=== PATIENT | female | born 1960 | race Caucasian/White ===

== ENCOUNTER 2016-11-06 14:20 | Observation (INO) | payer SELFPAY ==
[~2016-11-06 14:20] MED LIST: DIAZ5 PO; HYDR-3583 PO; Z.0.NO CURRENT MEDS
[2016-11-06] MEDS ORDERED: HALOPERIDOL LACTATE 5 MG/ML AMP IM PRN (15:45)
[2016-11-06] MEDS ORDERED: ONDANSETRON HCL 4 MG/2 ML VIAL IVP PRN (15:45)
[2016-11-06] MEDS ORDERED: BISACODYL 10 MG SUPP RECTAL PRN (15:45)
[2016-11-06] MEDS ORDERED: FLUMAZENIL 0.5 MG/5 ML VIAL IV PUSH PRN ×2 (15:45)
[2016-11-06] MEDS ORDERED: LORazepam 2 MG/ML VIAL IV PUSH PRN ×4 (15:45)
[2016-11-06] MEDS ORDERED: NALOXONE HCL 0.4 MG/ML AMP IV PRN (15:45)
[2016-11-06] MEDS ORDERED: LORazepam 1 MG TAB PO PRN (15:45)
[2016-11-06] MEDS ORDERED: SODIUM CHLORIDE 0.9% FLUSH 10 ML FLUSH IV FLUSH PRN (15:45)
[2016-11-06] MEDS ORDERED: LORazepam 2 MG TAB PO PRN (15:45)
[2016-11-06] MEDS ORDERED: ACETAMINOPHEN 325 MG TAB PO PRN ×2 (15:45)
[2016-11-06] MEDS: DOCUSATE SODIUM 100 MG CAP PO SCH (16:00)
[2016-11-06 16:30] VITALS: BP 99/63; PULSE 89; RESP 18; TEMP 97.6; O2SAT 96
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
[2016-11-06 19:05] VITALS: BP 110/65; PULSE 83; RESP 21; TEMP 98.5; O2SAT 98
[2016-11-06 20:30] VITALS: PULSE 81
[2016-11-06] MEDS: SODIUM CHLORIDE 0.9% FLUSH 10 ML FLUSH IV FLUSH SCH (21:00)
[2016-11-06] MEDS: SODIUM CHLOR 0.9% 1000 ML INJ 1,000 ML IV SCH (21:20)
[2016-11-06 22:28] LABS: ACETAMINOPHEN 3.9 MCG/ML (10.0-30.0); BICARBONATE 25.9 MEQ/L (21.0-32.0); MAGNESIUM 1.8 MG/DL (1.5-2.5); POTASSIUM 3.8 MEQ/L (3.5-5.1)
[2016-11-07 00:18] VITALS: BP 118/69; PULSE 85; RESP 18; TEMP 97.9; O2SAT 97
[2016-11-07 03:53] VITALS: BP 97/55; PULSE 78; RESP 20; TEMP 97.9; O2SAT 95
[2016-11-07] MEDS: DOCUSATE SODIUM 100 MG CAP PO SCH ×2 (04:00→16:00)
[2016-11-07] MEDS: SODIUM CHLOR 0.9% 1000 ML INJ 1,000 ML IV SCH (06:17)
[2016-11-07 06:47] LABS: AUTOMATED NEUTROPHIL # 2.7 TH/MM3 (1.8-7.7); BASOPHIL % 0.8 % (0.0-2.0); EOSINOPHIL # 0.1 TH/MM3 (0-0.4); EOSINOPHIL % 2.7 % (0.0-4.0); HEMATOCRIT 34.4 % (35.0-46.0); HEMO FLAGS DIFF FINAL; LYMPH % 29.5 % (9.0-44.0); LYMPHOCYTE # 1.4 TH/MM3 (1.0-4.8); MEAN CELL VOLUME 89.8 FL (80.0-100.0); MEAN CORPUSCULAR HEMOGLOBIN 30.4 PG (27.0-34.0); MEAN CORPUSCULAR HGB CONC 33.9 % (32.0-36.0); MONO % 10.1 % (0.0-8.0); NEUT % 56.9 % (16.0-70.0); PLATELET COUNT 197 TH/MM3 (150-450); RED BLOOD COUNT 3.83 MIL/MM3 (4.00-5.30); RED CELL DISTRIBUTION WIDTH 12.9 % (11.6-17.2); WHITE BLOOD COUNT 4.8 TH/MM3 (4.0-11.0)
[2016-11-07 07:19] LABS: ALT (GPT) 30 U/L (10-53); ANION GAP 8 MEQ/L (5-15); AST (GOT) 30 U/L (15-37); BLOOD UREA NITROGEN 15 MG/DL (7-18); CHLORIDE 109 MEQ/L (98-107); GLOMERULAR FILTRATION RATE 141 ML/MIN (>89); POTASSIUM 3.9 MEQ/L (3.5-5.1); SODIUM (NA) 142 MEQ/L (136-145)
[2016-11-07 07:20] LABS: ALKALINE PHOSPHATASE 65 U/L (45-117); TOTAL BILIRUBIN ADULT 0.4 MG/DL (0.2-1.0)
[2016-11-07] MEDS ORDERED: DEXTROSE 50% IN WATER 50 ML VIAL(D50) IV ONE (08:00)
[2016-11-07] MEDS ORDERED: GLUCAGON 1 MG/ML VIAL IM ONE (08:00)
[2016-11-07 08:13] VITALS: BP 109/60; PULSE 76; RESP 17; TEMP 97.9; O2SAT 93
[2016-11-07] MEDS: SODIUM CHLORIDE 0.9% FLUSH 10 ML FLUSH IV FLUSH SCH (08:40)
[2016-11-07] MEDS ORDERED: THIAMINE HCL 100 MG TAB PO SCH (09:00)
[2016-11-07] MEDS ORDERED: FOLIC ACID 1 MG TAB PO SCH (09:00)
[2016-11-07] MEDS ORDERED: MULTIVITAMINS/MINERALS THERAPEUTIC TAB PO SCH (09:00)
[2016-11-07 12:22] VITALS: BP 122/76; PULSE 78; RESP 17; TEMP 98.2; O2SAT 96
--- NOTE | 2016-11-07 12:48 | HHI.PR ---
Subjective Remarks Follow-up for overdose. The patient feels well today. She states that she took about 80 Valium 5 mg tablets yesterday because she thought she was going to go to [facility], and was trying to avoid going to [facility] by going to the hospital. She states that they must "sugar pills" because they didn't make her feel anything. She feels like someone must be selling her about medication. She states they didn't make her tired or fatigued whenever she initially took them. Currently she denies any lightheadedness, dizziness, chest pain, shortness of breath. She states she's been ambulating. She states she's been tolerating diet. Objective Vitals Vital Signs Date Time Temp Pulse Resp B/P Pulse Ox O2 Delivery O2 Flow Rate FiO2 11/07/16 12:22 98.2 78 17 122/76 96 11/07/16 08:13 97.9 76 17 109/60 93 11/07/16 03:53 97.9 78 20 97/55 95 11/07/16 00:18 97.9 85 18 118/69 97 11/06/16 20:30 81 11/06/16 19:05 98.5 83 21 110/65 98 11/06/16 16:30 97.6 89 18 99/63 96 I/O 11/06/16 11/06/16 11/06/16 11/07/16 11/07/16 11/07/16 07:00 15:00 23:00 07:00 15:00 23:00 Intake Total 750 ml Balance 750 ml Intake Oral 120 ml IV Total 630 ml Result Diagram: 11/07/16 0620 11/07/16 1123 Objective Remarks GENERAL: Well-developed well-nourished. In no acute distress. SKIN: Warm and dry. No lesions noted. HEENT: Normocephalic. Pupils equal and round. Mucous membranes pink and moist. CARDIOVASCULAR: Regular rate and rhythm. No murmur appreciated. RESPIRATORY: No accessory muscle use. Clear to auscultation. Breath sounds equal bilaterally. GASTROINTESTINAL: Abdomen soft, non-tender, nondistended. Bowel sounds x4. MUSCULOSKELETAL: No obvious deformities. No clubbing or cyanosis. No edema. NEUROLOGICAL: Awake and alert. No focal neurological deficits. Moves upper and lower extremities spontaneously. Normal speech. PSYCHIATRIC: Appropriate mood and affect; insight and judgment normal. Denies SI. A/P Problem List: (1) Transaminitis ICD Code: R74.0 Status: Resolved (2) Overdose ICD Code: T50.901A Status: Acute (3) Anxiety ICD Code: F41.9 Status: Chronic (4) Substance abuse ICD Code: F19.10 Status: Acute (5) Alcohol abuse ICD Code: F10.10 Status: Acute Assessment and Plan Ms. Sher is 56 yo, with reported history of anxiety disorder for which she has reportedly been prescribed Lorazepam over the past 4 years. She stated she called her psychiatrist prior to admission and received a prescription for Valium. Past medical history includes chronic back pain, nicotine use (1/2 ppd), and alcohol abuse. The patient was admitted after reportedly ingesting 80 tablets of Valium 5 mg on the morning of 11/06/16 after a family disagreement and pt's reported perception of going to [facility]. Her THANH in the ED was 129 and her UDS was positive for opiates and benzos. Pt was placed under [place] Act by police. Overdose, per patient due to secondary gain and trying to avoid [facility] -Poison control had been contacted and they requested repeat labs of BMP, salicylate and Tylenol levels, which were reviewed and essentially unremarkable. -Psychiatry consulted as patient is under Gold act, appreciate psychiatry input Alcohol abuse -Blood alcohol level of 129 in the ED. -CIWA protocol, caution with benzodiazepines. Elevated AST -Elevated at 62 upon initial labs, improved to normal limits overnight. Resolved. Hypoglycemia: Mild, asymptomatic. -Blood glucose this morning was 64, improved with juice. -Hypoglycemia protocol in place if needed Discharge Planning The patient is medically cleared pending psychiatric recommendations. Andres Rodríguez November 07, 2016 12:48
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
[2016-11-07] MEDS ORDERED: VITA100T2 PO (15:31)
[2016-11-07] MEDS ORDERED: FOLI1TAB4 PO (15:31)
[2016-11-07 16:00] VITALS: BP 107/66; PULSE 81; RESP 18; TEMP 98; O2SAT 95
== END 2016-11-07 20:14 | disposition home or self-care (01) ==
LOC: NEDDLT 14:20 → NEDA 16:45 → UNDOADMOB 16:45 → NEDA 17:16 → MERGE 17:16 → NEPGCP 17:30
PROVIDERS: ADMIT Internal Medicine; ATTEND Internal Medicine
DX: T42.4X2A Poisoning by benzodiazepines, intentional self-harm, initial encounter (principal); F39 Unspecified mood [affective] disorder; F41.9 Anxiety disorder, unspecified; F32.9 Major depressive disorder, single episode, unspecified; M54.9 Dorsalgia, unspecified; G89.29 Other chronic pain; F17.210 Nicotine dependence, cigarettes, uncomplicated; R74.0 Nonspecific elevation of levels of transaminase and lactic acid dehydrogenase [LDH]; F10.10 Alcohol abuse, uncomplicated; E16.2 Hypoglycemia, unspecified; Y90.6 Blood alcohol level of 120-199 mg/100 ml; Z59.9 Problem related to housing and economic circumstances, unspecified; Z56.0 Unemployment, unspecified
CPT/HCPCS: 36600; 80053; 80307; 81001; 82805; 82947; 82948; 83735; 85025; 85610; 85730; 93005; 99285; G0378; J7030; 80048; 99281